=== PATIENT | female | born 1955 | race Caucasian/White ===

== ENCOUNTER 2024-10-19 12:29 | Emergency (ER) | payer MEDICARE, BC ==
[~2024-10-19] VITALS: Ht 152.4 cm; Wt 66.6 kg
[~2024-10-19 12:29] MED LIST: CITALOPRAM HBR40 MG PO; LISINOPRIL10 MG PO; NALTREXONE HCL50 MG; NALTREXONE HCL50 MG PO; TRAZODONE HCL50 MG PO; XANAX0.5 MG PO
[2024-10-19] MEDS ORDERED: ALPRAZOLAM1 MG PO (12:58)
[2024-10-19] MEDS ORDERED: ATORVASTATIN CA20 MG PO (12:58)
[2024-10-19] MEDS ORDERED: ONDANSETRON ODT8 MG PO (13:54)
[2024-10-19] MEDS ORDERED: CHLORDIAZEPOXID25 MG PO (13:54)
[2024-10-19 13:56] VITALS: BP 101/65
== END 2024-10-19 14:00 | disposition home or self-care (01) ==
LOC: ED 12:29
DX: F10.10 Alcohol abuse, uncomplicated (principal); F17.200 Nicotine dependence, unspecified, uncomplicated
CPT/HCPCS: 99284